=== PATIENT | female | born 1950 | race Caucasian/White ===

== ENCOUNTER 2018-02-24 10:00 | Outpatient (RCR) | payer MEDICARE, OTHER, SELFPAY ==
--- NOTE | 2018-01-19 17:51 | HP.PTEVAL_ITS ---
Patient's Visit Information JACK HALLMAN is a 67 year old F referred to Physical Therapy by Baron Elizalde MD with a diagnosis of imbalance. Date of Evaluation: 01/19/18 Physical Therapist: Victor Hugo Troy DPT, [place] - Visit Plan Frequency: 2x /Week Duration: 4 Weeks Plan: 2x/week for 4 weeks. 1. Monitor dizzyness as EG may need to do Elpidio maneuver again. 2. foam, VOR balance and gait training. Consider neurocom after dizzyness resolved. - Subjective Subjective: I have trouble with my legs with neuropathy. Legs shake and tire easily. Has diabetes([place] in 2013 and [address] Elizalde for the shakiness and tremors and LOB. 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 Pain in legs and feet all the time through the whole leg and knees( OA in knees). When turns head fast or looks up gets spinning and off balance and happens if she bends too quick also. Has had vertigo positional prior, has been back for 4 months. No falls recently, stumbles alot. Uses cane because hard to get around in trailer with walker. Sometimes stumbles on cats. Steps into trailer with rail need to be done one step colby time. Sleep is not great , gets up alot to go to bathroom. Basic ADLs are done by herself as she is seperated. Spends day watching TV and putzing around the house. Drives OK. - Pain Leg pain Pain Intensity (Out of 10): 8 Pain Intensity Range: 6, 10 - Objective Walks slow and with short steps and very little weight shift, definite neuropathic gait pattern. Transfers to and fro sit and supine I with UE but slow. LE sensation WNL to gross light touch, two point discrimination is poor. reflexes 0/3 patella and achilles B. Strength is 4/5 in LE without myotomal problems. coordination is slow in reciprocal tapping of heel and toes, heel to medina is poor. + R hallpike papo up torsional nystagmuss delayed and 30 seconds, treated with R Elpidio. romberg 30 sec eop and ec. able to correct mild perturbations. Vor walking is challenging. - Balance Scores Functional Gait Assessment Score: 18 % Disability: 40.0000 - Goals Goal 1:: FGA to diminish fall risk Goal Time Frame: 2-4 Weeks Goal 2:: Abolish spinning with position change. Goal Time Frame: 4-6 Weeks Goal 3:: Feel 50% improved balance and be I with HEP to maintain improvements. Goal Time Frame: 4-6 Weeks - Rehabilitation Potential Physical Therapy Diagnosis: BPPV with imbalance from neuropathy and tremors. Rehabilitation Potential: Fair - Anticipated Interventions Patient/Client Instruction: Educate patient on: Condition, Plan of Care For the Purpose of:: To improve ability of physical actions for home/community/ work/leisure, To improve gait and locomotor functions Therapeutic Exercise to Include: Balance training Comment: positional treatments. For the Purpose of:: To improve ability of physical actions for home/community/ work/leisure, To improve safety Other: to abolish dizzyness Thank you for the opportunity to evaluate your patient. For Medicare and Medicare HMO plans, please review the plan of care and approve it. It will need to be FAXED BACK to us at [phone] for Medicare purposes. Please let me know if there are questions or concerns regarding this plan of care. Physician Signature: Date:
--- NOTE | 2018-02-24 10:57 | HP.PTDCSUM_ITS ---
HP - PT D/C Summary It has been my pleasure to treat JACK HALLMAN under orders from Baron Elizalde MD , for the diagnosis of imbalance for a total of 8 visit(s). Discharge Date: 02/24/18 Please see the following information for a summary of their discharge status. - Subjective Subjective: I think I am better. Head feels better and balance slowly getting better. Last funny feeling in head was over two days ago looking up and down and it lasted short duration 5 minutes. Very few FRENCH lately. To Dr. Shirley in March. Walking without cane today as she forgot it at home. - Pain Leg pain Pain Intensity (Out of 10): 0 Headache Pain Intensity (Out of 10): 0 - Overall Improvement % Improvement: 70 - Objective Objective/Function: - B hallpike papo today although she did feel a little goofy after the tests, no dizzyness and no nystagmus. FGA is +5 and much better although gait is still slow and hesitant at times. OVERALL MUCH BETTER ON BALANCE, DIZZYNESS BUT NOT 100% BETTER. RECOMMEND CONTINUE EX AND F/U BUT PT WISHES FOR D/C AND CINTRON EE DOCTOR IN THREE WEEKS. - Goals Goal 1:: FGA to diminish fall risk Goal Progress: Goal Met Goal 2:: Abolish spinning with position change. Goal Progress: Goal Met Goal 3:: Feel 50% improved balance and be I with HEP to maintain improvements. Goal Progress: Goal Met - Plan Plan: D/C, PT REQUEST. - D/C Information Discharge Comments: Pt doing well and to f/u with doctor in a couple weeks. If there are questions or concerns regarding this patient's physical therapy, please feel free to call me at [phone]. Thank you for the referral of this patient. Sincerely, Victor Hugo Troy, DPT, [place]
== END 2018-02-24 19:00 | disposition home or self-care (01) ==
LOC: PT 10:00
PROVIDERS: Family Provider Family Medicine; PCP Family Medicine; Visit Provider Psychiatry & Neurology Neurology
DX: G62.9 Polyneuropathy, unspecified (principal); R26.89 Other abnormalities of gait and mobility
CPT/HCPCS: 97110; 97163; 97530

== ENCOUNTER 2018-08-09 10:20 | Outpatient (RCR) | payer MEDICARE, OTHER, SELFPAY | END 2018-09-02 23:59 | LOC: DC 10:20 | PROVIDERS: Family Provider Family Medicine; PCP Family Medicine; Visit Provider Specialist | DX: E11.9 Type 2 diabetes mellitus without complications (principal); E66.9 Obesity, unspecified; Z68.39 Body mass index [BMI] 39.0-39.9, adult; Z71.3 Dietary counseling and surveillance | CPT/HCPCS: 97802 ==

== ENCOUNTER 2018-09-21 10:00 | Outpatient (RCR) | payer MEDICARE, OTHER, SELFPAY | END 2018-09-30 23:59 | LOC: DC 10:00 | PROVIDERS: Family Provider Family Medicine; PCP Family Medicine; Visit Provider Specialist | DX: E11.9 Type 2 diabetes mellitus without complications (principal); E66.9 Obesity, unspecified; Z68.39 Body mass index [BMI] 39.0-39.9, adult; Z71.3 Dietary counseling and surveillance | CPT/HCPCS: 97803; G0108 ==

== ENCOUNTER 2018-12-09 09:04 | Outpatient (RCR) | payer MEDICARE, OTHER, SELFPAY | END 2018-12-31 23:59 | LOC: DC 09:04 | PROVIDERS: Family Provider Family Medicine; PCP Family Medicine; Visit Provider Specialist | DX: E11.9 Type 2 diabetes mellitus without complications (principal); E66.9 Obesity, unspecified; Z68.39 Body mass index [BMI] 39.0-39.9, adult; Z71.3 Dietary counseling and surveillance | CPT/HCPCS: G0108 ==

== ENCOUNTER 2019-01-20 11:21 | Outpatient (RCR) | payer MEDICARE, OTHER, SELFPAY | END 2019-01-30 23:59 | LOC: DC 11:21 | PROVIDERS: Family Provider Family Medicine; PCP Family Medicine; Visit Provider Specialist | DX: E11.9 Type 2 diabetes mellitus without complications (principal); E66.9 Obesity, unspecified; Z68.39 Body mass index [BMI] 39.0-39.9, adult; Z71.3 Dietary counseling and surveillance | CPT/HCPCS: G0108 ==